=== PATIENT | male | born 1965 | race Two or more races ===

== ENCOUNTER 2021-04-19 07:52 | Outpatient (CLI) | payer OTHER | END 2021-04-19 07:57 | disposition home or self-care (01) | LOC: SONOGRAMA 07:52 | DX: E04.8 Other specified nontoxic goiter (principal) ==

== ENCOUNTER → 2021-05-03 07:42 | Outpatient (CLI) | payer OTHER | END | disposition home or self-care (01) | LOC: NUCLEAR 07:00 | PROVIDERS: ATTEND Internal Medicine Endocrinology, Diabetes & Metabolism | DX: E21.3 Hyperparathyroidism, unspecified (principal) | CPT/HCPCS: 78070; A9500 ==